=== PATIENT | male | born 1965 | race Caucasian/White ===

== ENCOUNTER 2021-10-12 06:28 | Day surgery (SDC) | payer OTHER ==
[2021-10-09 12:53] LABS: COVID AG,FIA SOURCE NASOPHARYNGEAL
[~2021-10-12] VITALS: Ht 167.6 cm; Wt 80.9 kg
[2021-10-12] MEDS ORDERED: SODIUM CHLORIDE 0.9% 1,000 ML ONE (06:30)
[2021-10-12] MEDS ORDERED: HYDR-4870 PO (06:47)
[2021-10-12] MEDS ORDERED: LISI-893 PO (06:47)
[2021-10-12] MEDS ORDERED: ATOR20TA86 PO (06:56)
[2021-10-12] MEDS ORDERED: AMLO-257 PO (06:57)
[2021-10-12] MEDS ORDERED: SODIUM CHLORIDE 0.9% 1,000 ML IV ONE (07:00)
[2021-10-12] MEDS ORDERED: FentaNYL CITRATE PF 100 MCG/2 ML VIAL ONE (08:29)
[2021-10-12] MEDS ORDERED: MIDAZOLAM HCL 5 MG/ML VIAL ONE (08:29)
[2021-10-12] MEDS ORDERED: MethylPREDNISolone SOD SUCC 125 MG/2 ML VIAL IVP ONE (09:00)
[2021-10-12] MEDS ORDERED: MethylPREDNISolone SOD SUCC 125 MG/2 ML VIAL ONE (09:27)
[2021-10-12] MEDS ORDERED: OXYGEN THERAPY IH SCH (20:00)
== END 2021-10-12 11:00 | disposition home or self-care (01) ==
LOC: SURGERY 06:28
PROVIDERS: ATTEND Internal Medicine Critical Care Medicine
DX: J38.4 Edema of larynx (principal); B37.0 Candidal stomatitis; F17.210 Nicotine dependence, cigarettes, uncomplicated; I10 Essential (primary) hypertension; Z90.49 Acquired absence of other specified parts of digestive tract; Z79.899 Other long term (current) drug therapy; Z98.890 Other specified postprocedural states
CPT/HCPCS: 31623; 31624; 71045; 87015; 87070; 87101; 87206; 87220; 87426; C9803; J2250; J2930; J3010; J7030; 88108; 88184; 88185